=== PATIENT | male | born 2000 | race Hispanic/Latino ===

== ENCOUNTER 2021-07-14 09:59 | Emergency (ER) | payer OTHER ==
[~2021-07-14] VITALS: Ht 170.2 cm; Wt 76.0 kg
[2021-07-14] MEDS ORDERED: MOTRIN400 MG/TAB PO (12:09)
[2021-07-14 12:58] VITALS: BP 150/88
== END 2021-07-14 13:00 | disposition home or self-care (01) | DRG 556 ==
LOC: ED 09:59
DX: M25.551 Pain in right hip (principal); X50.0XXA Overexertion from strenuous movement or load, initial encounter; Y93.89 Activity, other specified; Y92.73 Farm field as the place of occurrence of the external cause; Y99.0 Civilian activity done for income or pay